=== PATIENT | female | born 1985 | race Caucasian/White ===

== ENCOUNTER 2024-10-27 20:38 | Emergency (ER) | payer BC, SELFPAY ==
--- NOTE | ~2024-10-27 | XR_ITS ---
CLINICAL HISTORY: sports injury,pain Left wrist four views Comparison: None provided Findings: Transverse nondisplaced distal radius fracture. Nondisplaced ulnar styloid fracture noted. No other acute bony abnormality. Impression: Distal radial and ulnar fractures This document has been electronically signed by: Ron Sommer MD on 10/27/2024 22:13:47
[2024-10-27 21:21] VITALS: BP 138/73; PULSE 70; RESP 18; TEMP 36.8; O2SAT 98; BMI 32.3
--- NOTE | 2024-10-28 02:21 | ED_ITS ---
HPI - Extremity Problem General Chief complaint: Extremity Injury, Upper Stated complaint: left wrist inj Time Seen by Provider: 10/28/24 01:51 Source: patient Mode of arrival: ambulatory Limitations: no limitations History of Present Illness ED Provider: Claudio MCKEON HPI Narrative: The patient is a 39-year-old female presenting to the ED for evaluation of severe left wrist pain after an opponent ran into her while trying to tag the opponent during a kickball game. Patient reports she fell to the ground but did not land on the wrist, but has been experiencing severe pain since the c ollision. The patient denies previous injury to the affected extremity, denies distal paresthesias. Related Data Allergies Allergy/AdvReac Type Severity Reaction Status Date / Time ciprofloxacin (From CIPRO) Allergy Unknown ANAPHYLAXIS Verified 10/27/24 21:22 latex (LATEX) Allergy Unknown RASH Verified 10/27/24 21:22 Sulfa (Sulfonamide Allergy Unknown ANAPHYLAXIS Verified 10/27/24 21:22 Antibiotics) (SULFA(SULFONAMIDE ANTIBIOTICS)) tramadol (TRAMADOL) Allergy Unknown PANIC Verified 10/27/24 21:22 ATTACK From CIPRO Allergy Unknown ANAPHYLAXIS Uncoded 10/27/24 21:22 Review of Systems Review of Systems: Yes all other systems are reviewed and are negative PMFSH Social History Social History Advance Directives: No Physical Exam Exam: Exam: CONSTITUTIONAL: The patient appears non-toxic, well nourished and in no acute distress. Vital signs as documented. HEAD: Atraumatic, normocephalic. EYES: EOMs grossly intact, pupils equal, conjunctiva clear, no exudate. ENT: Nares patent, no discharge. Airway patent, no audible stridor, visible mucosa is pink and moist without noted lesions. NECK: trachea is midline, no obvious masses or gross abnormalities. CHEST: Symmetric movement, normal appearance. LUNGS: Non-labored work of breathing. CARDIAC: No evidence of hypoperfusion. ABDOMEN: Nondistended, no obvious injury. : Deferred. EXTREMITIES: There is marked tenderness to palpation with swelling noted to left wrist without crepitus or obvious deformity. Distal CSM is intact, 2+ radial pulse. Patient moves all other extremities spontaneously without reported pain. No other obvious injury or deformity noted. NEURO: Alert and oriented x3, CN II-XII appear grossly intact. Cerebellar Functioning grossly intact. Speech clear and appropriate. SKIN: Warm, dry, color appropriate. No rashes or lesions noted. Vital Signs: Vital Signs: Last Vital Signs Temp 98.3 F 10/27/24 21:21 Pulse 70 10/27/24 21:21 Resp 18 10/27/24 21:21 BP 138/73 10/27/24 21:21 Pulse Ox 98 10/27/24 21:21 O2 Del Method Room Air 10/27/24 21:21 BMI result Body Mass Index 32.3 Medications Administered Discontinued Medications Generic Name Dose Route Start Last Admin Trade Name Erin PRN Reason Stop Dose Admin Acetaminophen 650 mg 10/28/24 01:24 10/28/24 01:27 Acetaminophen 325 Mg Tablet PO 10/28/24 01:25 650 mg ONCE ONE Administration Ibuprofen 600 mg 10/28/24 02:17 10/28/24 02:23 Ibuprofen 600 Mg Tablet PO 10/28/24 02:18 600 mg ONCE ONE Administration Medical Decision Making Medical Decision Making MDM Narrative: 2:48 AM 10/28/2024 (Elina MCKEON): Patient is a 39 year old female patient presenting to the ED for evaluation of left wrist pain following a collision with another player at a [employer] game. The patient has marked tenderness and swelling of the left wrist, x-ray shows distal radius and ulna fractures. The patient will be placed in a sugar-tong splint, treated with ibuprofen, Tylenol, and orthopedic follow up. Radiology Impression Discussion of test interpretation with radiology: I have reviewed the radiologist's reading. Radiologist Impression: CLINICAL HISTORY: sports injury,pain Left wrist four views Comparison: None provided Findings: Transverse nondisplaced distal radius fracture. Nondisplaced ulnar styloid fracture noted. No other acute bony abnormality. Impression: Distal radial and ulnar fractures This document has been electronically signed by: Ron Sommer MD on 10/27/2024 22:13:47 Procedures Orthopedic Splinting/Casting Injury #1: Side: left Upper Extremity Injury Location: wrist Upper Extremity Immobilizer: sugar tong splint Additional Comments: Distal CSM intact prior to and following splinting. Discharge Plan Discharge Clinical Impression: Fracture of wrist Patient Disposition: Home, Self-Care Instructions: Wrist Fracture in Adults (ED) Additional Instructions: Thank you for choosing [facility] Emergency Department for your care today. Unfortunately your x-ray today shows evidence of a fracture of the distal ulna and radius, the 2 bones that makeup your forearm. Thankfully there is no significant displacement of the fracture segments and we are able to place you in a splint. Please keep the splint on and dry until follow up with Orthopedics. At this time there is no indication for admission to the hospital or continued ED observation, and it is safe to discharge you home. Please contact the orthopedic office by calling the number provided tomorrow to schedule a follow up appointment for definitive treatment and casting. You may take alternating (staggered) doses of ibuprofen 600mg and Tylenol 1000mg every 4 hours as needed for any additional pain. Please rest the injured area, and apply ice over the splint for 20 minutes every hour. Please stay well hydrated and get plenty of rest. Please follow up with your primary care physician for re-evaluation, additional management of your symptoms, and continued preventative care. If you do not have a primary care physician, please call the [facility] at [phone] to establish a new primary care physician. While waiting to establish your new primary care physician, you can call our Walk[facility]in [facility] at [phone] for non-emergency needs. Please return to the emergency department if you develop a severe or sudden change in your symptoms, a fever over 100.4 that does not improve with Tylenol or Ibuprofen, recurrent vomiting, or any other new or worsening symptoms or concerns. Referrals: Jackson Wheeler MD [Primary Care Provider, Medical] Clinical Impression: Fracture of wrist Dae Fu MD [Physician, Orthopedics] Clinical Impression: Fracture of wrist Print Language: Vietnamese
[2024-10-28 03:11] VITALS: BP 138/73; PULSE 70; RESP 18; TEMP 36.8; O2SAT 98
== END 2024-10-28 03:12 | disposition home or self-care (01) ==
PROVIDERS: Emergency Provider Emergency Medicine; PCP Internal Medicine
DX: S52.502A Unspecified fracture of the lower end of left radius, initial encounter for closed fracture (principal); S52.615A Nondisplaced fracture of left ulna styloid process, initial encounter for closed fracture; W03.XXXA Other fall on same level due to collision with another person, initial encounter; Y93.6A Activity, physical games generally associated with school recess, summer camp and children; Y92.89 Other specified places as the place of occurrence of the external cause; Y99.8 Other external cause status
CPT/HCPCS: 29125; 73110; 99283; 99284

== ENCOUNTER → 2024-10-27 20:57 | Outpatient (BNV) | payer OTHER, SELFPAY | PROVIDERS: PCP Internal Medicine; Visit Provider Radiology Diagnostic Radiology | DX: S52.502A Unspecified fracture of the lower end of left radius, initial encounter for closed fracture (principal); S52.602A Unspecified fracture of lower end of left ulna, initial encounter for closed fracture | CPT/HCPCS: 73110 ==